=== PATIENT | female | born 1970 | race African-American/Black ===

== ENCOUNTER 2018-07-01 21:33 | Emergency (ER) | payer BC ==
[2018-07-01] MEDS ORDERED: Al Hydrox/Mg Hydrox/Simet LIQ* 30 ML UDC PO ONE (22:54)
[2018-07-01] MEDS ORDERED: traMADol TAB* 50 MG PO ONE (22:54)
[2018-07-01] MEDS ORDERED: Ondansetron ODT TAB* 4 MG SL ONE (22:54)
[2018-07-01 23:06] LABS: ABS Basophils 0 10^3/ul (0-0.2); ABS Eosinophils 0 10^3/ul (0-0.6); ABS Lymphocytes 0.8 10^3/ul (1.0-4.8); ABS Monocytes 0.2 10^3/ul (0-0.8); ABS Neutrophils 5.9 10^3/ul (1.5-7.7); ABS Nucleated RBC 0 10^3/ul; Eosinophil % 0.4 % (0-6); Hematocrit 36 % (35-47); Lymphocyte % 11.3 % (25-47); Mean Corpuscular HGB Conc 34 g/dl (31-36); Mean Corpuscular Hemoglobin 31 pg (27-31); Mean Corpuscular Volume 92 fL (80-97); Mean Platelet Volume 8.2 um3 (7.4-10.4); Nucleated Red Blood Cells % 0; Platelet Count 181 10^3/ul (150-450); Red Blood Count 3.87 10^6/ul (4.00-5.40); Red Cell Distribution Width 14 % (10.5-15); White Blood Count 6.9 10^3/ul (3.5-10.8)
[2018-07-01 23:25] LABS: EGFR Non-African American 92.7 (>60)
--- NOTE | 2018-07-01 23:25 | ED ---
Abdominal Pain/Female - HPI Summary HPI Summary: Patient is an otherwise healthy 47-year-old female with a history of H. pylori 2 years ago presenting to the ED with complaint of mid abdominal pain into times emesis today. She states it feels different than her episode 2 years ago and denies any epigastric pain. Pain is just superior to the umbilicus. Symptoms began approximately 6 hours ago and have remained constant however have somewhat improved over the past few hours and since arrival. She has not taken anything for for relief. She does not take any medications at home. She endorses a gluten-free diet over the past year, however had some bread earlier this morning. Last BM this morning and continues to pass gas okay. Patient appears well on arrival and denies any fevers, sweats, chills. Endorses a pain of 3/10 constant and aching. Denies any urinary symptoms or back pain. Denies any shortness of breath or chest pain. She denies any nausea at this time. - History of Current Complaint Chief Complaint: EDAbdPain Stated Complaint: ABD PAIN Time Seen by Provider: 07/01/18 22:38 Hx Obtained From: Patient ?: No Onset/Duration: Sudden Onset Timing: Constant Severity Initially: Moderate Severity Currently: Moderate Pain Intensity: 3 Pain Scale Used: 0-10 Numeric Location: Umbilical Radiates: No Character: Other: - aching Aggravating Factor(s): Nothing Alleviating Factor(s): Nothing Associated Signs and Symptoms: Positive: Negative - Risk Factors Ectopic Risk Factor: Negative Ovarian Torsion Risk Factor: Negative Allergies/Adverse Reactions: Allergies Allergy/AdvReac Type Severity Reaction Status Date / Time aspirin Allergy Unknown Verified 07/01/18 21:36 Reaction Details Sulfa (Sulfonamide Allergy Unknown Verified 07/01/18 21:36 Antibiotics) Reaction Details PMH/Surg Hx/FS Hx/Imm Hx Previously Healthy: Yes Sensory History: Reports: Hx Contacts or Glasses Opthamlomology History: Reports: Hx Contacts or Glasses - Immunization History Hx Pertussis Vaccination: No Immunizations Up to Date: Unable to Obtain/Confirm Infectious Disease History: No Infectious Disease History: Denies: Hx Clostridium Difficile, Hx Hepatitis, Hx Human Immunodeficiency Virus (HIV), Hx of Known/Suspected MRSA, Hx Shingles, Hx Tuberculosis, Hx Known/ Suspected VRE, Hx Known/Suspected VRSA, History Other Infectious Disease, Traveled Outside the [place] in Last 30 Days - Family History Known Family History: Positive: Hypertension - Social History Occupation: Employed Full-time Lives: With Family Alcohol Use: Rare Hx Substance Use: No Substance Use Type: Reports: None Smoking Status (MU): Never Smoked Tobacco Review of Systems Constitutional: Negative Negative: Fever, Chills, Fatigue Negative: Palpitations, Chest Pain Negative: Shortness Of Breath, Cough Positive: Abdominal Pain - mid abdominal pain - aching. Negative: Vomiting, Diarrhea Genitourinary: Negative Positive: no symptoms reported, see HPI Skin: Negative Neurological: Negative All Other Systems Reviewed And Are Negative: Yes Physical Exam Triage Information Reviewed: Yes Vital Signs On Initial Exam: Initial Vitals Temp Pulse Resp BP Pulse Ox 97.9 F 64 16 128/65 100 07/01/18 21:37 07/01/18 21:37 07/01/18 21:37 07/01/18 21:37 07/01/18 21:37 Vital Signs Reviewed: Yes Appearance: Positive: Well-Appearing, Well-Nourished Skin: Positive: Warm, Skin Color Reflects Adequate Perfusion Head/Face: Positive: Normal Head/Face Inspection Eyes: Positive: EOMI, TRESSA, Conjunctiva Clear Neck: Positive: Supple, No Lymphadenopathy Respiratory/Lung Sounds: Positive: Clear to Auscultation, Breath Sounds Present Cardiovascular: Positive: Normal, Pulses are Symmetrical in both Upper and Lower Extremities Abdomen Description: Positive: Soft, Other: - abdominal pain - mid abdomen. Negative: CVA Tenderness (R), CVA Tenderness (L) Musculoskeletal: Positive: Normal, Strength/ROM Intact Neurological: Positive: Sensory/Motor Intact, Alert, Oriented to Person Place, Time Psychiatric: Positive: Normal Diagnostics - Vital Signs Vital Signs Temp Pulse Resp BP Pulse Ox 07/01/18 22:53 66 100 07/01/18 21:37 97.9 F 64 16 128/65 100 - Laboratory Lab Results: Lab Results 07/01/18 Range/Units 22:57 WBC 6.9 (3.5-10.8) 10^3/ul RBC 3.87 L (4.00-5.40) 10^6/ul Hgb 12.0 (12.0-16.0) g/dl Hct 36 (35-47) % MCV 92 (80-97) fL MCH 31 (27-31) pg MCHC 34 (31-36) g/dl RDW 14 (10.5-15) % Plt Count 181 (150-450) 10^3/ul MPV 8.2 (7.4-10.4) um3 Neut % (Auto) 84.5 H (38-83) % Lymph % (Auto) 11.3 L (25-47) % [place] % (Auto) 3.4 (0-7) % Eos % (Auto) 0.4 (0-6) % Baso % (Auto) 0.4 (0-2) % Absolute Neuts (auto) 5.9 (1.5-7.7) 10^3/ul Absolute Lymphs (auto) 0.8 L (1.0-4.8) 10^3/ul Absolute Monos (auto) 0.2 (0-0.8) 10^3/ul Absolute Eos (auto) 0 (0-0.6) 10^3/ul Absolute Basos (auto) 0 (0-0.2) 10^3/ul Absolute Nucleated RBC 0 10^3/ul Nucleated RBC % 0 Result Diagrams: 07/01/18 22:57 07/01/18 22:57 Lab Statement: Any lab studies that have been ordered have been reviewed, and results considered in the medical decision making process. Abdominal Pain Fem Course/Dx - Course Course Of Treatment: Patient is evaluated for mid abdominal pain. Labs obtained. She is given Maalox, tramadol as well as Zofran with good relief. She states she has been feeling much better since arrival to the ED. Deferred imaging at this time. Labs obtained which shows no abnormal findings. Patient is given to go Zofran and will return for any worsening symptoms. - Diagnoses Differential Diagnosis: Positive: Bowel Obstruction, Constipation, Pancreatitis Provider Diagnoses: Abdominal pain Discharge - Sign-Out/Discharge Documenting (check all that apply): Patient Departure - Discharge Plan Condition: Stable Disposition: HOME Referrals: Singh Snyder MD [Primary Care Provider] - Additional Instructions: Follow up with PCP if symptoms worsen, return to the ED - Billing Disposition and Condition Condition: STABLE Disposition: Home
[2018-07-02] MEDS ORDERED: O ndansetron ODT 4MG 2TAB PRPK 4 MG PAK PO ONE (00:03)
[2018-07-02] MEDS ORDERED: Ondansetron TAB* 4 MG ONE (00:28)
[2018-07-02 00:50] VITALS: BP 127/77
== END 2018-07-02 00:35 | disposition home or self-care (01) ==
LOC: ED 21:33
DX: R10.9 Unspecified abdominal pain (principal)
CPT/HCPCS: 36415; 80053; 83605; 83690; 85025; 99282; A9270-GY

== ENCOUNTER 2019-09-02 11:36 | Emergency (ER) | payer SELFPAY ==
--- NOTE | 2019-09-02 13:34 | ED ---
Complex/Multi-Sys Presentation - HPI Summary HPI Summary: 49-year-old female presents with potential CO exposure today. she was in the office for 2 hours this morning with potential of co. she states she has headache. has sinus issues which had yesterday. She was tested at 29 by ems and given oxygen. She has no medical conditions. Is a nonsmoker. Building was found to have CO. - History Of Current Complaint Chief Complaint: EDChemNuclearExpose Time Seen by Provider: 09/02/19 12:39 - Allergies/Home Medications Allergies/Adverse Reactions: Allergies Allergy/AdvReac Type Severity Reaction Status Date / Time aspirin Allergy Unknown Verified 09/02/19 11:51 Reaction Details Sulfa (Sulfonamide Allergy Unknown Verified 09/02/19 11:51 Antibiotics) Reaction Details PMH/Surg Hx/FS Hx/Imm Hx Endocrine/Hematology History: Denies: Hx Anticoagulant Therapy Respiratory History: Denies: Hx Asthma Sensory History: Reports: Hx Contacts or Glasses Opthamlomology History: Reports: Hx Contacts or Glasses Infectious Disease History: No Infectious Disease History: Denies: Hx Clostridium Difficile, Hx Hepatitis, Hx Human Immunodeficiency Virus (HIV), Hx of Known/Suspected MRSA, Hx Shingles, Hx Tuberculosis, Hx Known/ Suspected VRE, Hx Known/Suspected VRSA, History Other Infectious Disease, Traveled Outside the [place] in Last 30 Days - Family History Known Family History: Positive: Hypertension - Social History Alcohol Use: Rare Hx Substance Use: No Substance Use Type: Reports: None Smoking Status (MU): Never Smoked Tobacco Review of Systems Negative: Fever Negative: Chest Pain Negative: Shortness Of Breath Positive: Headache All Other Systems Reviewed And Are Negative: Yes Physical Exam Triage Information Reviewed: Yes Vital Signs On Initial Exam: Initial Vitals Temp Pulse Resp BP Pulse Ox 98.0 F 75 14 166/79 99 09/02/19 11:47 09/02/19 11:47 09/02/19 11:47 09/02/19 11:47 09/02/19 11:47 Vital Signs Reviewed: Yes Appearance: Positive: Well-Appearing Skin: Positive: Warm, Dry Head/Face: Positive: Normal Head/Face Inspection Eyes: Positive: Normal, Conjunctiva Clear ENT: Positive: Pharynx normal Respiratory/Lung Sounds: Positive: Clear to Auscultation, Breath Sounds Present Cardiovascular: Positive: Normal, RRR Musculoskeletal: Positive: Normal Neurological: Positive: Normal Psychiatric: Positive: Normal Procedures - Sedation Patient Received Moderate/Deep Sedation with Procedure: No Diagnostics - Vital Signs Vital Signs Temp Pulse Resp BP Pulse Ox 09/02/19 11:47 98.0 F 75 14 166/79 99 - Laboratory Lab Results: Lab Results 09/02/19 Range/Units 12:17 Carbon Monoxide Screen 6.2 H (<4.0) % Lab Statement: Any lab studies that have been ordered have been reviewed, and results considered in the medical decision making process. Complex Multi-Symp Course/Dx Course Of Treatment: 49-year-old female presents with potential CO exposure today. she was in the office for 2 hours this morning with potential of co. she states she has headache. has sinus issues which had yesterday. She was tested at 29 by ems and given oxygen. She has no medical conditions. Is a nonsmoker. Building was found to have CO. On exam has normal physical exam. CO 6. placed on oxygen. patient understand and agrees with plan. - Diagnoses Differential Diagnoses/HQI/PQRI: Other - co exposure Provider Diagnoses: Carbon monoxide poisoning Discharge ED - Sign-Out/Discharge Documenting (check all that apply): Patient Departure - Discharge Plan Condition: Good Disposition: HOME Patient Education Materials: Carbon Monoxide Poisoning (ED) Referrals: Singh Snyder MD [Primary Care Provider] - Additional Instructions: Take tyenlol or ibuprofen every 6 hours as needed for pain Return to ED if develop any new or worsening symptoms - Billing Disposition and Condition Condition: GOOD Disposition: Home
[2019-09-02 14:57] VITALS: BP 114/76
== END 2019-09-02 14:50 | disposition home or self-care (01) ==
LOC: ED 11:36
DX: T65.891A Toxic effect of other specified substances, accidental (unintentional), initial encounter (principal); R51 Headache; Y99.0 Civilian activity done for income or pay; Z88.6 Allergy status to analgesic agent; Z88.2 Allergy status to sulfonamides
CPT/HCPCS: 36415; 82375; 99282